=== PATIENT | male | born 1995 | race Caucasian/White ===

== ENCOUNTER 2019-11-08 00:11 | Emergency (ER) | payer SELFPAY ==
[2019-11-08] MEDS ORDERED: Metoclopramide 10 MG/2 ML SDV IVPUSH ONE (00:36)
[2019-11-08] MEDS ORDERED: Dexamethasone 10 MG/ML SDV IVPUSH ONE (00:36)
--- NOTE | 2019-11-08 00:41 | EDM.PDOC ---
ED HPI GENERAL MEDICAL PROBLEM - General Chief Complaint: Headache Stated Complaint: HEADACHES Time Seen by Provider: 11/08/19 00:14 - History of Present Illness INITIAL COMMENTS - FREE TEXT/NARRATIVE: 23-year-old male presents with new daily headache for the last 7 days. He did have a headache all day today but then it woke him up as a sudden severe pain around 1 hour prior to arrival no nausea or vomiting patient reports some generalized fatigue and weakness but no fever no neck stiffness no history of recent head injury. He states that there is a family history of "tumors." No chest pain or shortness of breath no cough no other symptoms he denies exacerbating or alleviating factors radiation beyond its focus in the left frontal region or other associated symptoms. - Related Data Allergies Allergy/AdvReac Type Severity Reaction Status Date / Time No Known Allergies Allergy Verified 11/08/19 00:33 Home Meds: Home Meds . [No Known Home Meds] 11/08/19 [History] Past Medical History - Past Health History Medical/Surgical History: Denies Medical/Surgical History Social & Family History - Caffeine Use Caffeine Use: Reports: None - Recreational Drug Use Recreational Drug Use: No ED ROS GENERAL - Review of Systems Review Of Systems: See Below Free Text/Narrative/Comment: General: No fever. Skin: No rash. Eyes: No vision problems. ENT: No sore throat. Neck: No neck stiffness. Respiratory: No shortness of breath. Cardiac: No chest pain. Gastrointestinal: No nausea, vomiting or abdominal pain. Urinary: No dysuria. Musculoskeletal: No myalgias/arthralgias. Neurologic: Per HPI ED EXAM, GENERAL - Physical Exam Exam: See Below Free Text/Narrative:: General Appearance: No acute distress, appears comfortable Skin: No rash HEENT: Normocephalic/atraumatic, sclera anicteric, mucous membranes moist Neck: Normal range of motion Abdomen: Soft, non-tender Back: Normal Musculoskeletal: No edema or tenderness Neurologic: Cranial nerves III through XI intact bilaterally normal gait negative Romberg [id number] intact bilaterally 5 out of 5 strength upper and lower extremities sensation grossly intact Psychiatric: Appropriate, cooperative Course - Vital Signs Last Recorded V/S: Last Vital Signs Temp 97.0 F 11/08/19 00:23 Pulse 98 11/08/19 00:23 Resp 16 11/08/19 00:23 BP 119/63 11/08/19 00:23 Pulse Ox 97 11/08/19 00:23 - Orders/Labs/Meds Meds: Medications Discontinued Medications Generic Name Dose Route Start Last Admin Trade Name Monika PRN Reason Stop Dose Admin Dexamethasone 10 mg 11/08/19 00:36 11/08/19 00:47 Dexamethasone IVPUSH 11/08/19 00:37 10 mg ONETIME ONE Administration Metoclopramide HCl 10 mg 11/08/19 00:36 11/08/19 00:47 Reglan IVPUSH 11/08/19 00:37 10 mg ONETIME ONE Administration Departure - Departure Time of Disposition: 01:28 Disposition: Home, Self-Care 01 Condition: Good Clinical Impression: Acute sinusitis - Discharge Information *PRESCRIPTION DRUG MONITORING PROGRAM REVIEWED*: Not Applicable *COPY OF PRESCRIPTION DRUG MONITORING REPORT IN PATIENT RENALDO: Not Applicable Instructions: Sinusitis, Adult, [id number] Referrals: Shantal Su [Ordering Only Provider] - Forms: ED Department Discharge Additional Instructions: I recommend that you get a Audrey pot or Glendo sinus rinse as this will help clean out your sinuses. Please follow the instructions on the box to use it correctly. Every 12 hours for the next 3 days before you use the Audrey pot please do 2 sprays of Afrin up each nostril this will shrink the mucus layers and help dry out your nose and sinus and allow the Audrey pot to work better. It is very important that you do not use the Afrin for more than 3 days as it can cause dependence inside your nose and severe congestion. I also encourage you to use a decongestant and mucus thinning agent such as Mucinex D as this will help thin the mucus as well. Your symptoms should improve if you still have symptoms when you hit the 2-week yao please follow-up with the [facility] and they will do another assessment and could potentially start you on antibiotics at that time. However, at this time the symptoms are more likely to be related to viruses and we cannot provide antibiotics at this point. The following information is given to patients seen in the emergency department who are being discharged to home. This information is to outline your options for follow-up care. We provide all patients seen in our emergency department with a follow-up referral. The need for follow-up, as well as the timing and circumstances, are variable depending upon the specifics of your emergency department visit. If you don't have a primary care physician on staff, we will provide you with a referral. We always advise you to contact your personal physician following an emergency department visit to inform them of the circumstance of the visit and for follow-up with them and/or the need for any referrals to a consulting specialist. The emergency department will also refer you to a specialist when appropriate. This referral assures that you have the opportunity for follow-up care with a specialist. All of these measure are taken in an effort to provide you with optimal care, which includes your follow-up. Under all circumstances we always encourage you to contact your private physician who remains a resource for coordinating your care. When calling for follow-up care, please make the office aware that this follow-up is from your recent emergency room visit. If for any reason you are refused follow-up, please contact the [facility] Emergency Department at and asked to speak to the emergency department charge nurse. Sepsis Event Note (ED) - Evaluation Sepsis Screening Result: No Definite Risk - Focused Exam Vital Signs: Vital Signs Temp Pulse Resp BP Pulse Ox 11/08/19 00:23 97.0 F 98 16 119/63 97 - Assessment/Plan Assessment:: 23-year-old male with new chronic severe daily headache this headache started [address] scan of the brain to exclude subarachnoid given time since onset CT is normal would not require CT angios or lumbar puncture. No findings of meningitis or encephalitis neurologic exam is normal CT will exclude large mass as well no indication for emergent MRI. Migraine headache is possible medication rebound possible but patient is only had 2 doses of BC powder otherwise he has not taken any medications. Given the severity and duration of the headache IV to be inserted and Reglan and Decadron provided patient develops akathisia will add Benadryl. Patient is not driving home. Patient symptoms are much improved. Patient CT scan shows no intracranial abnormality but does have left frontal and ethmoid sinusitis which I think is the cause of the patient's symptoms he has significant sinus tenderness to percussion. Patient has had symptoms for 7 days so does not qualify for antibiotics but we discussed Audrey pot Afrin use and decongestants patient instructed to follow-up with the [facility] if his symptoms not improved by the 2-week yao.
--- NOTE | 2019-11-08 01:20 | CT ---
INDICATION: Left frontal headache TECHNIQUE: CT Head without i.v. contrast. COMPARISON: None FINDINGS: CSF space: The ventricles are normal for age. Brain: No evidence of mass, acute infarction or hemorrhage is seen. No mass-effect or midline shift is seen. The brain parenchyma is otherwise normal in appearance with preservation of the mcgee-white matter junction. Calvarium: Mucosal thickening is noted in the left frontal sinus, ethmoid air cells and left maxillary sinus. The mastoid air cells are clear. The visualized orbits are grossly unremarkable. The calvarium is unremarkable in appearance with no fractures identified. IMPRESSIONS: 1. No evidence of acute infarction, intracranial hemorrhage, or mass-effect seen. 2. Mucosal thickening is noted in the left frontal sinus, ethmoid air cells and left maxillary sinus. Clinical correlation is recommended to determine if this is a potential etiology for the patient`s symptoms. Dictated by Hong Cullen MD @ 11/08/2019 1:18:59 AM Please note that all CT scans at this facility use dose modulation, iterative reconstruction, and/or weight-based dosing when appropriate to reduce radiation dose to as low as reasonably achievable. Dictated by: Hong Cullen MD @ 11/08/2019 01:19:04 (Electronically Signed)
== END 2019-11-08 01:46 | disposition home or self-care (01) ==
LOC: MW.ED 00:11
DX: J01.90 Acute sinusitis, unspecified (principal)
CPT/HCPCS: 70450; 96374; 96375; 99284; J1100; J2765; 99283